=== PATIENT | female | born 1935 | race Caucasian/White ===

== ENCOUNTER 2019-01-31 06:34 | Day surgery (SDC) | payer MEDICARE, BC ==
--- NOTE | 2019-01-14 10:02 | HP ---
CC: Dr. Cornelius Huston * PREOPERATIVE HISTORY AND PHYSICAL: DATE OF ADMISSION/SURGERY: 01/31/19 - [facility] This patient is scheduled for same-day surgery admission by Dr. Marin on Sunday , 01/31/19. DATE OF PREOPERATIVE HISTORY AND PHYSICAL EXAMINATION: 01/13/19. ATTENDING SURGEON: Dr. Michelle Marin * (dictated by Vanessa Zuniga NP). CHIEF COMPLAINT: Right breast cancer. HISTORY OF PRESENT ILLNESS: The patient is an 83-year-old female who reports that she had not noticed any changes in her breasts, but a recent mammogram identified an abnormality in the right breast. This prompted a plan for a biopsy, which she underwent on 01/01/19 and the biopsy showed invasive ductal cancer, ER/NC positive, HER2 negative, grade 2. She was referred to Dr. Marin for further management. The patient denies any changes in the right breast and denies any nipple discharge. She has never had radiation to the chest and has never had a previous breast biopsy. There is no family history of breast cancer in any first-degree relatives. A maternal great grandmother may have had breast cancer, but that history is fairly obscure. There is no family history of ovarian cancer. She was on control pills for a year or two 50 years ago. She was 15 with her first menstrual period, 25 when her first child was born and she did breastfeed and she believes she was about 57 when she underwent menopause. Dr. Marin has examined the patient and discussed the findings with her. Dr. Marin discussed the various surgical treatment methods and the patient has opted for needle localization excision of the right breast cancer with sentinel lymph node biopsy as a same-day surgery procedure. Dr. Marin described the nature of the surgical procedure, the relevant risks and benefits and today, I reviewed the expected postoperative care and recovery. The patient has had a chance to ask questions and stated that she understands the information and is satisfied with the answers given to her questions. She will sign surgical consent on the day of surgery. PAST MEDICAL HISTORY: Hypertension. PAST SURGICAL HISTORY: Vaginal polypectomy many years ago. OB HISTORY: 3, para 3. Menopausal at age 57. Menarche at age 15. No menopausal symptoms. MEDICATIONS: 1. Hydrochlorothiazide 25 mg p.o. daily. 2. PreserVision AREDS 1 tablet twice a day. ALLERGIES: No known drug allergies. FAMILY HISTORY: No known breast cancer in any first-degree relatives. No family history of ovarian cancer. No history of anesthesia complications, bleeding tendencies, or clotting disorders. SOCIAL HISTORY: She is and lives alone. She walks daily for exercise. She is a nonsmoker. She drinks 1 glass of wine daily and denies the use of other substances. REVIEW OF SYSTEMS: Constitutional: No fevers, chills, excessive fatigue, or weight loss. Endocrine: No diabetes or thyroid disease. Hematologic: No easy bruising or bleeding. No history of blood transfusions. General: No history of deep vein thrombosis or pulmonary embolism. No previous anesthesia complications. Breasts: Abnormal right breast lesion as described in history of present illness. Respiratory: No dyspnea on exertion or chronic cough. Cardiovascular: No anginal chest pain or palpitations. Gastrointestinal: No nausea, vomiting, diarrhea, GI bleeding, constipation, or change in bowel habits. Genitourinary: No dysuria. No vaginal discharge. Musculoskeletal: Normal strength and tone. Integumentary: No chronic rashes or skin changes. Neurologic: No headache, blurred vision, or areas of focal weakness or numbness. Psychiatric: No insomnia, anxiety, or depression. PHYSICAL EXAMINATION GENERAL SURVEY: The patient is an 83-year-old female, well developed, well nourished, in no acute distress. VITAL SIGNS: Height 69 inches, weight 180 pounds, body mass index 26.6. Blood pressure 118/80, pulse 60 and regular, respiratory rate 16, temperature 96.7 tympanic. HEENT: Benign. NECK: Supple. No cervical lymphadenopathy. No supraclavicular lymphadenopathy. LUNGS: Breath sounds bilaterally clear and equal. HEART: Regular rate and rhythm. No murmurs or rubs appreciated. BREASTS: Symmetric except for resolving ecchymosis in the inferior right breast. Both nipples are flat. There is no skin dimpling. Palpation of the right breast reveals knobbiness under the ecchymotic area, but no discrete mass. Palpation of the left breast reveals no discrete mass, but dense tissue in the upper outer quadrant. No nipple discharge bilaterally. ABDOMEN: Active bowel sounds. Soft, nondistended, nontender throughout. BACK: No CVA tenderness. PELVIC: Exam deferred. RECTAL: Exam deferred. EXTREMITIES: Warm without edema or skin ulceration. NEUROLOGIC: Alert and oriented x3. Steady gait. SKIN: Warm, dry, intact. IMPRESSION: Right breast cancer. PLAN: Same-day surgery admission to Dr. Marin's service on 01/31/19, for needle localization excision of right breast cancer and sentinel lymph node biopsy. JUSTUS ZUNIGA, VESSEL OPERATOR [id number]/CPS #: [id number] ANGELINA
[~2019-01-31 06:34] MED LIST: Acetaminophen TAB* 325 MG PO ONE; Buffered Lidocaine 1% SYRIN* 1 ML/SYRINGE INTRADERM ONE; Famotidine IV* 10 MG/ML 2 ML (20 mg) IV ONE; Lactated Ringers 1000 ML Bag* 1,000 ML IV SCH
[2019-01-31] MEDS ORDERED: ceFAZolin 2 GM in NS PREMIX(*) 2 GM/100 ML BAG IVPB ONE ×2 (07:36→12:13)
[2019-01-31] MEDS ORDERED: Lidocaine 2.5%/Prilocain 2.5%* 5 GM TUBE ONE (07:42)
[2019-01-31] MEDS ORDERED: Famotidine IV* 10 MG/ML 2 ML (20 mg) ONE (12:13)
[2019-01-31] MEDS ORDERED: Heparin VIAL(*) 5000 UNITS/ML VIAL (FIVE THOUSAND) ONE (12:13)
[2019-01-31] MEDS ORDERED: Acetaminophen TAB* 325 MG ONE (12:13)
[2019-01-31] MEDS ORDERED: Lidocaine 1% INJ* 10 MG/ML 30 ML SDV ONE (14:47)
[2019-01-31] MEDS ORDERED: Methylene Blue 0.5 %* 50 MG/10 ML AMP IV ONE (14:47)
[2019-01-31] MEDS ORDERED: Midazolam* 1 MG/ML 2 ML VIAL (2 MG) ONE (15:00)
[2019-01-31] MEDS ORDERED: fentaNYL* 50 MCG/ML 2 ML VIAL (100 MCG VIAL) ONE (15:00)
[2019-01-31] MEDS ORDERED: Ondansetron INJ* 2 MG/ML VIAL ONE (15:48)
[2019-01-31] MEDS ORDERED: Lidocaine 2% PF * 5 ML VIAL ONE (15:48)
[2019-01-31] MEDS ORDERED: Ketorolac INJ* 30 MG/ML 1 ML VIAL ONE (15:48)
[2019-01-31] MEDS ORDERED: Propofol* 10 MG/ML 20 ML BTL ONE (15:48)
[2019-01-31] MEDS ORDERED: Bupivacaine 0.5% W/EPI SDV* 10 ML VIAL INJ ONE (15:56)
[2019-01-31] MEDS ORDERED: Naloxone* 0.4 MG/ML 1 ML VIAL IV PRN (16:26)
[2019-01-31] MEDS ORDERED: Ondansetron INJ* 2 MG/ML VIAL IV PRN (16:26)
[2019-01-31] MEDS ORDERED: fentaNYL* 50 MCG/ML 2 ML VIAL (100 MCG VIAL) IV PRN (16:26)
[2019-01-31] MEDS ORDERED: DiMENhydriNATE IV* 50 MG/ML VIAL IV PUSH PRN (16:26)
[2019-01-31] MEDS ORDERED: HYDROcodone/ACETAMIN 5-325 MG* 1 TAB PO PRN (16:26)
[2019-01-31] MEDS ORDERED: Acetaminophen TAB* 325 MG PO PRN (16:26)
[2019-01-31] MEDS ORDERED: EPHEDrine (Pressors)* 50 MG/ML VIAL ONE (17:02)
[2019-01-31 18:09] VITALS: BP 166/96
--- NOTE | 2019-01-31 21:20 | OP ---
[facility]: [facility]; Dr. Cornelius Huston OPERATIVE REPORT: DATE OF OPERATION: 01/31/19 DATE OF : 39 SURGEON: Michelle Marin MD ANIME ARTIST: ROCÍO Escamilla PRE-OP DIAGNOSIS: Right breast cancer POST-OP DIAGNOSIS: Right breast cancer OPERATIVE PROCEDURE: Needle localization and excision of right breast cancer and sentinel lymph node biopsy. INDICATIONS: Ms. Hernandez is an 83-year-old woman with recent diagnosis of right breast cancer prompting the plan for surgical intervention. On the morning of surgery, she underwent needle localization and sentinel lymph node localization without difficulty. DESCRIPTION OF PROCEDURE: She was then brought to the operating room, placed on the OR table in the supine position and given IV sedation. During the procedure, however, she had to be converted to general due to movement. The right breast was then prepped and draped in usual sterile fashion taking care not to dislodge the localizing wire. After infiltrating the local anesthetic, a curvilinear incision encompassing the wire was made. Subcutaneous tissue was then divided with electrocautery to excise the mass of tissue from around the wire. This was then handed off as a specimen after marking in the usual fashion. The report eventually came back from Radiology that the specimen contained the abnormality. Meanwhile, hemostasis had been achieved with electrocautery and then additional local was instilled into the wound and closure was accomplished. This was done with 3-0 Vicryl in the subcutaneous layer and the skin was closed with 4-0 Prolene in the subcuticular fashion. Attention was then turned to the axilla. Here, using the navigator, the approximate location of the sentinel node was identified and then a curvilinear incision was made after infiltrating with local anesthetic in the axilla. Subcutaneous tissue was divided with electrocautery down to the level of the axillary fat pad. Again, using the navigator, the approximate location of the sentinel node was identified and tissue was dissected from around this area until the node was exposed. The sentinel node #1 in situ counts were around 2233, ex vivo counts were 6563, it was removed using clips to control small lymphatic and blood vessels that approached it and sharp dissection. A search for another sentinel node was made and a second node was identified with in situ counts of 5139, it was removed in a similar fashion and its ex vivo counts were 5441. Finally, a third sentinel node was identified and then in similar fashion it was removed. Its in situ counts were 1551 and ex vivo counts were 1443. Axillary bed counts were 19. The wound was inspected for hemostasis which appeared to be adequate and some additional local was instilled into the wound and then closure was accomplished. This was done with 3-0 Vicryl in the subcutaneous layer and the skin was closed with 4-0 Prolene in the subcuticular fashion. Steri-Strips and a dry sterile dressing were applied to both incisions. All sponge and instruments counts were correct. The patient tolerated the procedure well and was transferred to Recovery in a stable condition. [id number]/CPS #: [id number] MTDD
== END 2019-01-31 18:10 | disposition home or self-care (01) ==
LOC: SDS 06:34
PROVIDERS: ATTEND Surgery
DX: C50.911 Malignant neoplasm of unspecified site of right female breast (principal); I10 Essential (primary) hypertension
CPT/HCPCS: 77061; 78195; 88307; 88342; A9270-GY; A9541; G0279; J0690; J1644; J1885; J2250; J2405; J2704; J3010